=== PATIENT | male | born 1955 | race African-American/Black ===

== ENCOUNTER 2022-07-24 13:37 | Inpatient (IN) | payer OTHER ==
[2022-07-24 14:27] LABS: Hemoglobin 11.1 g/dL (13.5-17.5); Mean Corpuscular HGB CONC 32.4 g/dL (32.0-36.0); Mean Corpuscular Hemoglobin 28.3 pg (27.0-33.0); Mean Corpuscular Volume 87.5 fl (81.2-95.1); Mean Platelet Volume 10.6 fl (7.4-10.4); Platelet Count 477 10x3/uL (150-450); RBC Distribution Width 14.6 % (11.5-14.5); Red Blood Cell (RBC) Count 3.92 10x6/uL (4.32-5.72); White Blood Cell (WBC) Count 22.9 10x3/uL (3.5-10.5)
[2022-07-24 14:36] LABS: INR-International Normal Ratio 1.1; PTT 30.9 sec (22.0-33.0); Prothrombin Time 11.9 sec (9.5-12.1)
[2022-07-24 14:42] LABS: ALT (SGPT) 79 U/L (8-55); AST (SGOT) 103 U/L (5-34); Albumin 3.8 g/dL (3.4-4.8); Alkaline Phosphatase 197 U/L (40-110); Anion Gap 19 mmol/L (10-20); BUN (Urea Nitrogen) 28 mg/dL (8.4-25.7); Bilirubin, Total 1.1 mg/dL (0.2-1.2); CK (CPK) 66 U/L (30-200); Calc. Creatinine Clearance 0 mL/min (70-130); Carbon Dioxide 20 mmol/L (23-31); Chloride 104 mmol/L (98-107); Estimated GFR 22; Glucose 275 mg/dL (80-115); Magnesium 1.8 mg/dL (1.6-2.6); Potassium 4.3 mmol/L (3.5-5.1); Protein, Total 6.8 g/dL (5.8-8.1); Sodium 139 mmol/L (136-145)
[2022-07-24 15:07] LABS: Band 20 % (5-11); Lymphocytes 2 % (21-51); Monocytes 2 % (0-10); Reactive Lymphocytes 3 % (0-10)
[2022-07-24 15:08] LABS: Neutrophil 73 % (42-75)
[2022-07-24 15:09] LABS: Anisocytosis SLIGHT = 6-15 cells (100X) (0-5/hpf); Giant Platelets SLIGHT; Large Platelets MODERATE; Microcytosis SLIGHT = 6-15 cells (100X) (0-5/hpf); Platelet Clumps MODERATE; Platelet Morphology Comment Appears Increased
[2022-07-24 15:10] LABS: MDiff Complete? YES
[2022-07-24] MEDS ORDERED: cefTRIAXone\\ROCEPHIN 2 GM VIAL ONE (15:34)
[2022-07-24 17:34] LABS: Lactic Acid 2.2 mmol/L (0.5-2.2)
[2022-07-24 17:46] LABS: Troponin I 0.024 ng/mL (< 0.028)
[2022-07-24] MEDS ORDERED: HumaLOG 300 UNITS/3 ML VIAL SC PRN (18:07)
[2022-07-24] MEDS ORDERED: Dextrose 50% Abboject 50 ML SYRINGE SLOW IVP PRN (18:07)
[2022-07-24] MEDS ORDERED: Dextrose 5% in Water 1,000 ML IV PRN (18:07)
[2022-07-24] MEDS ORDERED: HYDROcodone/Acetaminophen 5/325 mg Tablet PO PRN (18:08)
[2022-07-24] MEDS ORDERED: Ondansetron PF 4 MG/2 ML Vial IVP PRN (18:08)
[2022-07-24] MEDS ORDERED: Ondansetron ODT 4 MG TAB PO PRN (18:08)
[2022-07-24] MEDS ORDERED: Communication Order-Pharmacy FS PRN (18:10)
[2022-07-24 18:28] LABS: Bilirubin Neg (Negative); Blood, Urine Negative (Negative); Clarity Cloudy (Clear); Glucose, Urine (Dipstick) 50 mg/dL (Negative); Ketone, Urine 5 mg/dL (Negative); Leukocyte 500 (Negative); Nitrite Positive (Negative); Protein, Urine (Dipstick) 100 mg/dl (Neg-Trace); Specific Gravity, Urine 1.015 (1.005-1.030); Urobilinogen Normal mg/dL (Less than 2)
[2022-07-24 18:41] LABS: WBC/HPF Greater Than 50 HPF (0-3)
[2022-07-24 18:42] LABS: Bacteria/HPF 3+ HPF (None Seen); Sperm/HPF 1+ HPF (None Seen); Squamous Epithelial 0-3 HPF (0-3)
[2022-07-24 18:57] LABS: Magnesium 1.7 mg/dL (1.6-2.6); Phosphorus 2.1 mg/dL (2.3-4.7)
[2022-07-24 19:06] LABS: Troponin I 0.021 ng/mL (< 0.028)
[2022-07-24 20:01] LABS: HBSAg Index 0.23 S/CO (0-0.99); Hep B Surf Ag Non-Reactive S/CO (NonReactive)
[2022-07-24 20:30] VITALS: BMI 36.6
[2022-07-24] MEDS: Famotidine/PF 20 mg/2ml Vial SLOW IVP SCH (21:27)
[2022-07-24] MEDS: Amiodarone 200 MG TAB PO SCH (21:28)
[2022-07-24] MEDS: Sodium Chloride 0.9% 1,000 ML IV SCH (21:28)
[2022-07-24] MEDS: Apixaban 5 MG TAB PO SCH (21:28)
[2022-07-25] MEDS ORDERED: FLU VACC QS2022-23(65YR UP)/PF 240 MCG/0.7 ML SYRINGE IM ONE (00:30)
[2022-07-25 00:39] LABS: SARS-CoV-2 NAA Rapid Test Not Detected (NotDetected)
[2022-07-25 00:45] LABS: HBCM Index 0.25 S/CO (0-0.79); Hep A IgM AB Non-Reactive (NonReactive); Hep C IgG Ab Non-Reactive (NonReactive); Hepatitis B Core IgM Abs Non-Reactive (NonReactive)
[2022-07-25 05:07] LABS: ALT (SGPT) 67 U/L (8-55); AST (SGOT) 42 U/L (5-34); Albumin 3.2 g/dL (3.4-4.8); Alkaline Phosphatase 155 U/L (40-110); Anion Gap 16 mmol/L (10-20); BUN (Urea Nitrogen) 30 mg/dL (8.4-25.7); Bilirubin, Total 0.6 mg/dL (0.2-1.2); Calc. Creatinine Clearance 46 mL/min (70-130); Calcium 8.9 mg/dL (7.8-10.44); Carbon Dioxide 19 mmol/L (23-31); Chloride 108 mmol/L (98-107); Estimated GFR 26; Globulin 3.6 g/dL (2.4-3.5); Glucose 249 mg/dL (80-115); Magnesium 2.1 mg/dL (1.6-2.6); Potassium 4.3 mmol/L (3.5-5.1); Protein, Total 6.8 g/dL (5.8-8.1); Sodium 139 mmol/L (136-145)
[2022-07-25 05:26] LABS: Hemoglobin 9.9 g/dL (13.5-17.5); Mean Corpuscular HGB CONC 31.3 g/dL (32.0-36.0); Mean Corpuscular Hemoglobin 28.7 pg (27.0-33.0); Mean Corpuscular Volume 91.6 fl (81.2-95.1); Mean Platelet Volume 10.9 fl (7.4-10.4); Platelet Count 445 10x3/uL (150-450); RBC Distribution Width 14.7 % (11.5-14.5); Red Blood Cell (RBC) Count 3.45 10x6/uL (4.32-5.72); White Blood Cell (WBC) Count 30.4 10x3/uL (3.5-10.5)
[2022-07-25] MEDS: HumaLOG 300 UNITS/3 ML VIAL SC PRN ×3 (05:46→17:24)
[2022-07-25 06:03] LABS: Band 3 % (5-11); Eosinophils 2 % (0-10); Lymphocytes 5 % (21-51); Monocytes 5 % (0-10); Neutrophil 85 % (42-75); Nucleated RBC 1 % (0)
[2022-07-25 06:04] LABS: MDiff Complete? YES; Platelet Morphology Comment Appears Adequate
[2022-07-25 08:15] LABS: Bilirubin Neg (Negative); Blood, Urine Negative (Negative); Clarity Cloudy (Clear); Glucose, Urine (Dipstick) Normal (Negative); Ketone, Urine Negative (Negative); Leukocyte 500 (Negative); Nitrite Negative (Negative); Protein, Urine (Dipstick) 15 mg/dl (Neg-Trace); Specific Gravity, Urine 1.015 (1.005-1.030); Urobilinogen Normal mg/dL (Less than 2)
[2022-07-25 08:23] LABS: Bacteria/HPF 1+ HPF (None Seen); Oval Fat Bodies/HPF 1+ HPF (None Seen); Squamous Epithelial 0-3 HPF (0-3); WBC/HPF Greater Than 50 HPF (0-3)
[2022-07-25] MEDS ORDERED: Piperacillin/Tazobactam 3.375 GM in Sodium Chloride 0.9% 100 ML IVPB SCH ×2 (09:00→10:00)
[2022-07-25] MEDS: Amiodarone 200 MG TAB PO SCH ×2 (10:19→21:17)
[2022-07-25] MEDS: Apixaban 5 MG TAB PO SCH ×2 (10:19→21:17)
[2022-07-25] MEDS: Sodium Chloride 0.9% 1,000 ML IV SCH (10:19)
[2022-07-25] MEDS: VANCOMYCIN 1.25 GM/250 ML BAG 1.25 GM in Premix Bag 1 BAG IVPB SCH (11:23)
[2022-07-25] MEDS ORDERED: glipiZIDE 5 MG TAB PO SCH (12:30)
[2022-07-25] MEDS: Piperacillin/Tazobactam 3.375 GM in Sodium Chloride 0.9% 100 ML IVPB SCH ×2 (14:16→21:18)
[2022-07-25] MEDS ORDERED: cefTRIAXone\\ROCEPHIN 2 GM in Sodium Chloride 0.9% 100 ML IVPB SCH (15:30)
[2022-07-25] MEDS: Famotidine/PF 20 mg/2ml Vial SLOW IVP SCH (21:18)
[2022-07-26] MEDS: Sodium Chloride 0.9% 1,000 ML IV SCH ×3 (00:43→23:55)
[2022-07-26] MEDS: Piperacillin/Tazobactam 3.375 GM in Sodium Chloride 0.9% 100 ML IVPB SCH ×3 (05:32→21:05)
[2022-07-26 06:08] LABS: #Basophils 0.1 10x3/uL (0.0-0.2); #Eosinphils 0.3 10x3/uL (0.0-0.5); #Monocytes 0.9 10x3/uL (0.0-1.1); #Neutrophils 11.2 10x3/uL (1.5-8.4); %Basophils 0.4 % (0.0-2.0); %Eosinophils 2.3 % (0.0-6.0); %Lymphocytes 10.7 % (18.0-47.0); %Monocytes 6.5 % (0.0-10.0); %Neutrophils 79.5 % (40.0-75.0); Hemoglobin 10.1 g/dL (13.5-17.5); Mean Corpuscular HGB CONC 31.5 g/dL (32.0-36.0); Mean Corpuscular Hemoglobin 27.8 pg (27.0-33.0); Mean Corpuscular Volume 88.4 fl (81.2-95.1); Mean Platelet Volume 10.8 fl (7.4-10.4); Platelet Count 436 10x3/uL (150-450); RBC Distribution Width 14.3 % (11.5-14.5); Red Blood Cell (RBC) Count 3.63 10x6/uL (4.32-5.72); White Blood Cell (WBC) Count 14.1 10x3/uL (3.5-10.5)
[2022-07-26 06:29] LABS: ALT (SGPT) 66 U/L (8-55); AST (SGOT) 36 U/L (5-34); Albumin 3.1 g/dL (3.4-4.8); Alkaline Phosphatase 138 U/L (40-110); Anion Gap 13 mmol/L (10-20); BUN (Urea Nitrogen) 21 mg/dL (8.4-25.7); Bilirubin, Total 0.5 mg/dL (0.2-1.2); Calc. Creatinine Clearance 66 mL/min (70-130); Calcium 8.9 mg/dL (7.8-10.44); Carbon Dioxide 20 mmol/L (23-31); Chloride 111 mmol/L (98-107); Estimated GFR 40; Globulin 3.6 g/dL (2.4-3.5); Glucose 174 mg/dL (80-115); Potassium 4.1 mmol/L (3.5-5.1); Protein, Total 6.7 g/dL (5.8-8.1); Sodium 140 mmol/L (136-145)
[2022-07-26] MEDS: Amiodarone 200 MG TAB PO SCH ×2 (08:28→20:51)
[2022-07-26] MEDS: Famotidine/PF 20 mg/2ml Vial SLOW IVP SCH ×2 (08:29→20:52)
[2022-07-26] MEDS: Apixaban 5 MG TAB PO SCH ×2 (08:29→20:51)
[2022-07-26] MEDS: glipiZIDE 5 MG TAB PO SCH (08:29)
[2022-07-26] MEDS: VANCOMYCIN 1.25 GM/250 ML BAG 1.25 GM in Premix Bag 1 BAG IVPB SCH (10:25)
[2022-07-26] MEDS: HumaLOG 300 UNITS/3 ML VIAL SC PRN ×2 (12:00→17:21)
[2022-07-26] MEDS: hydrALAZINE 25 MG TAB PO SCH ×2 (15:36→20:52)
[2022-07-26] MEDS: Nateglinide 120 MG TAB PO SCH ×2 (15:37→20:51)
[2022-07-26] MEDS: Acetaminophen 325 MG TAB PO PRN ×2 (17:21→22:26)
[2022-07-26] MEDS: Furosemide 20 MG TAB PO SCH (20:51)
[2022-07-26] MEDS: Carvedilol 25 MG TAB PO SCH (20:51)
[2022-07-26] MEDS ORDERED: Atorvastatin Calcium 40 MG TAB PO SCH (21:00)
[2022-07-27 05:01] LABS: ALT (SGPT) 66 U/L (8-55); AST (SGOT) 36 U/L (5-34); Albumin 3.2 g/dL (3.4-4.8); Alkaline Phosphatase 117 U/L (40-110); Anion Gap 13 mmol/L (10-20); BUN (Urea Nitrogen) 17 mg/dL (8.4-25.7); Bilirubin, Total 0.5 mg/dL (0.2-1.2); Calc. Creatinine Clearance 66 mL/min (70-130); Carbon Dioxide 21 mmol/L (23-31); Chloride 109 mmol/L (98-107); Estimated GFR 40; Globulin 3.4 g/dL (2.4-3.5); Glucose 218 mg/dL (80-115); Potassium 4.1 mmol/L (3.5-5.1); Protein, Total 6.6 g/dL (5.8-8.1); Sodium 139 mmol/L (136-145)
[2022-07-27 05:11] LABS: #Basophils 0.1 10x3/uL (0.0-0.2); #Eosinphils 0.3 10x3/uL (0.0-0.5); #Monocytes 0.8 10x3/uL (0.0-1.1); #Neutrophils 6.2 10x3/uL (1.5-8.4); %Basophils 0.7 % (0.0-2.0); %Eosinophils 2.9 % (0.0-6.0); %Lymphocytes 21.7 % (18.0-47.0); %Monocytes 8.6 % (0.0-10.0); %Neutrophils 64.9 % (40.0-75.0); Hemoglobin 10.3 g/dL (13.5-17.5); Mean Corpuscular Hemoglobin 28.2 pg (27.0-33.0); Mean Corpuscular Volume 88.2 fl (81.2-95.1); Mean Platelet Volume 10.6 fl (7.4-10.4); Platelet Count 459 10x3/uL (150-450); RBC Distribution Width 14.3 % (11.5-14.5); Red Blood Cell (RBC) Count 3.65 10x6/uL (4.32-5.72); White Blood Cell (WBC) Count 9.6 10x3/uL (3.5-10.5)
[2022-07-27] MEDS: Piperacillin/Tazobactam 3.375 GM in Sodium Chloride 0.9% 100 ML IVPB SCH (05:17)
[2022-07-27] MEDS: HumaLOG 300 UNITS/3 ML VIAL SC PRN ×2 (06:03→11:18)
[2022-07-27] MEDS ORDERED: Clopidogrel Bisulfate 75 MG TAB PO SCH (09:00)
[2022-07-27] MEDS ORDERED: Tamsulosin HCl 0.4 MG CAP PO SCH (09:00)
[2022-07-27] MEDS ORDERED: Spironolactone 25 MG TAB PO SCH (09:00)
[2022-07-27] MEDS ORDERED: Ezetimibe 10 MG TAB PO SCH (09:00)
[2022-07-27] MEDS ORDERED: Allopurinol 100 MG TAB PO SCH (09:00)
[2022-07-27] MEDS: Famotidine/PF 20 mg/2ml Vial SLOW IVP SCH (11:18)
[2022-07-27] MEDS: Nateglinide 120 MG TAB PO SCH (11:22)
[2022-07-27] MEDS: hydrALAZINE 25 MG TAB PO SCH (11:22)
[2022-07-27] MEDS: glipiZIDE 5 MG TAB PO SCH (11:23)
[2022-07-27] MEDS: Apixaban 5 MG TAB PO SCH (11:23)
[2022-07-27] MEDS: Furosemide 20 MG TAB PO SCH (11:23)
[2022-07-27] MEDS: Carvedilol 25 MG TAB PO SCH (11:23)
[2022-07-27] MEDS: Amiodarone 200 MG TAB PO SCH (11:24)
[2022-07-27] MEDS: Acetaminophen 325 MG TAB PO PRN (11:35)
[2022-07-27 13:51] VITALS: BP 187/80; TEMP 98.2
== END 2022-07-27 11:55 | disposition home or self-care (01) | DRG 872 ==
LOC: CSHERS 13:37 → CSHTELE 19:15
PROVIDERS: ADMIT Family Medicine; ATTEND Internal Medicine
DX: A41.59 Other Gram-negative sepsis (principal); I50.32 Chronic diastolic (congestive) heart failure; I13.0 Hypertensive heart and chronic kidney disease with heart failure and stage 1 through stage 4 chronic kidney disease, or unspecified chronic kidney disease; N17.9 Acute kidney failure, unspecified; N39.0 Urinary tract infection, site not specified; I25.10 Atherosclerotic heart disease of native coronary artery without angina pectoris; N18.9 Chronic kidney disease, unspecified; M10.9 Gout, unspecified; I48.91 Unspecified atrial fibrillation; E11.22 Type 2 diabetes mellitus with diabetic chronic kidney disease; R74.01 Elevation of levels of liver transaminase levels; R55 Syncope and collapse; E78.00 Pure hypercholesterolemia, unspecified; Z20.822 Contact with and (suspected) exposure to COVID-19; B96.1 Klebsiella pneumoniae [K. pneumoniae] as the cause of diseases classified elsewhere; N41.9 Inflammatory disease of prostate, unspecified; Z79.899 Other long term (current) drug therapy; Z79.84 Long term (current) use of oral hypoglycemic drugs; Z95.5 Presence of coronary angioplasty implant and graft; Z95.810 Presence of automatic (implantable) cardiac defibrillator
CPT/HCPCS: 36415; 36416; 70450; 71045; 71250; 74177; 76700; 80053; 80074; 81001; 81003; 81015; 82550; 83605; 83735; 83880; 84100; 84145; 84484; 85025; 85610; 85730; 87040; 87077; 87086; 87149; 87186; 93005; 93306; 93880; 94760; 96361; 96365; 96367; J0696; J1815; J2543; J3370; J3490; J7050; S0028

== ENCOUNTER 2022-10-18 08:29 | Outpatient (CLI) | payer OTHER ==
[2022-10-18] MEDS ORDERED: Magnevist 469MG/ML 20 ML VIAL ONE (09:33)
== END 2022-10-18 08:30 | disposition home or self-care (01) ==
LOC: CSHSPEC 08:29
PROVIDERS: ATTEND Urology
DX: R97.20 Elevated prostate specific antigen [PSA] (principal); Z95.0 Presence of cardiac pacemaker
CPT/HCPCS: 71045; 72197; 82565